=== PATIENT | male | born 1980 | race Caucasian/White ===

== ENCOUNTER 2024-08-20 21:00 | Inpatient (IN) | payer SELFPAY ==
[~2024-08-20] VITALS: Ht 170.2 cm; Wt 124.7 kg
[2024-08-20 21:03] VITALS: O2SAT 98
[2024-08-20 21:58] LABS: BASOPHILS % 0.8 % (0.0-2.0); EOSINOPHILS % 4.7 % (0.0-5.0); HEMATOCRIT. 41.1 % (42.0-52.0); HEMOGLOBIN. 13.8 g/dL (14.0-18.0); LYMPHOCYTES % 38.7 % (20.0-50.0); MEAN CORPUSCULAR HEMOGLOBIN 29.2 pg (28.0-32.0); MEAN CORPUSCULAR HGB CONC 33.7 g/dL (31.0-37.0); MEAN CORPUSCULAR VOLUME 86.7 fL (80.0-94.0); MEAN PLATELET VOLUME 8.1 fl (7.4-10.4); MONOCYTES % 7.6 % (2.0-8.0); NEUTROPHILS % 48.2 % (40.0-76.0); PLATELET 291 x1000/uL (130-400); RED BLOOD CELL COUNT 4.73 mill/uL (4.7-6.1); WHITE BLOOD COUNT 8.4 x1000/uL (4.5-11.0)
[2024-08-20 22:06] LABS: CHLORIDE 102 mEq/L (98-107); PARTIAL THROMBOPLASTIN TIME 25.1 sec (23.4-31.0); POTASSIUM 4.2 mEq/L (3.5-5.1); PROTHROMBIN TIME 10.3 sec (9.6-11.0); SODIUM 137 mEq/L (136-145)
[2024-08-20] MEDS: MORPHINE SULFATE 4 MG/ML INJ (FOR IV/IM USE) IV STA (22:06)
[2024-08-20] MEDS: SODIUM CHLORIDE 0.9% 1,000 ML IV ONE (22:06)
[2024-08-20] MEDS: ONDANSETRON HCL 4MG/2ML INJ IV STA (22:06)
[2024-08-20 22:07] LABS: CALCIUM 9.2 mg/dL (8.7-10.4); CARBON DIOXIDE 27 mEq/L (21-32)
[2024-08-20 22:12] LABS: CREATININE 0.9 mg/dL (0.6-1.3); GLUCOSE 158 mg/dL (70-105)
[2024-08-20 22:13] LABS: TROPONIN I HIGH SENSITIVITY 14 ng/L (3.0-53); UREA NITROGEN BLOOD 9 mg/dL (9-23)
[2024-08-20 22:14] LABS: ALANINE AMINOTRANSFERASE 65 IU/L (10-49); ALBUMIN 4.6 g/dL (3.2-4.8); ASPARTATE AMINOTRANSFERASE 49 IU/L (<34); BILIRUBIN DIRECT 0.1 mg/dL (<=3.0)
[2024-08-20 22:15] LABS: BILIRUBIN TOTAL 0.3 mg/dL (0.1-1.0); PROTEIN TOTAL 8.1 g/dL (6.0-8.3)
[2024-08-20] MEDS: IOHEXOL-350 100 ML BOTTLE ONE (23:50)
[2024-08-21] MEDS: ASPIRIN 325MG EC TABLET PO ONE (00:06)
[2024-08-21] MEDS ORDERED: CLONIDINE 0.1MG TABLET PO PRN (00:30)
[2024-08-21] MEDS ORDERED: ACETAMINOPHEN 325MG TABLET PO PRN ×2 (00:30)
[2024-08-21] MEDS ORDERED: DEXTROSE 50% WATER 50ML SYRINGE IV PRN (00:30)
[2024-08-21] MEDS ORDERED: ONDANSETRON HCL 4MG/2ML INJ IV PRN (00:30)
[2024-08-21] MEDS ORDERED: IPRATROPIUM/ALBUTEROL 0.5-3(2.5)MG/3ML NEB HHN PRN (00:30)
[2024-08-21] MEDS: PANTOPRAZOLE SODIUM 40 MG/VIAL IV NR (01:32)
[2024-08-21 02:40] LABS: CLARITY URINE CLEAR (CLEAR); COLOR URINE YELLOW (YELLOW); GLUCOSE URINE NEGATIVE (NEGATIVE); KETONES URINE NEGATIVE (NEGATIVE); LEUKOCYTE ESTERASE URINE NEGATIVE (NEGATIVE); NITRITE URINE NEGATIVE (NEGATIVE); OCCULT BLOOD URINE NEGATIVE (NEGATIVE); PROTEIN URINE NEGATIVE (NEGATIVE); SPECIFIC GRAVITY URINE 1.041 (1.005-1.030); UROBILINOGEN URINE 0.2 E.U./dL (0.2-1.0)
[2024-08-21 02:43] LABS: *AMPHETAMINES SCREEN URINE NEGATIVE (NEGATIVE); *BARBITURATES SCREEN URINE NEGATIVE (NEGATIVE); *BENZODIAZEPINES SCREEN URINE NEGATIVE (NEGATIVE); *COCAINE SCREEN URINE NEGATIVE (NEGATIVE)
[2024-08-21 02:44] LABS: CANNABINOID URINE SCREEN NEGATIVE (NEGATIVE); ECSTASY MDMA SCREEN URINE NEGATIVE (NEGATIVE); METHADONE URINE SCREEN NEGATIVE (NEGATIVE); OPIATES URINE SCREEN PRESUMPTIVE POSITIVE (NEGATIVE); PHENCYCLIDINE URINE SCREEN NEGATIVE (NEGATIVE)
[2024-08-21 05:00] VITALS: BP 124/76; PULSE 76; RESP 20; TEMP 36.4; O2SAT 98
[2024-08-21] MEDS ORDERED: ACET-2708 MT (06:17)
[2024-08-21] MEDS: BLOOD SUGAR DIAGNOSTIC STRIP TEST SCH (06:51)
[2024-08-21 07:30] VITALS: BP 124/76; PULSE 76; RESP 16; TEMP 36.4
[2024-08-21] MEDS: INSULIN LISPRO 100 UNITS/ML SUBCUT SCH (07:34)
[2024-08-21 08:00] VITALS: BP 154/79; PULSE 75; RESP 16; TEMP 36.2; O2SAT 98
[2024-08-21] MEDS: ASPIRIN 81MG EC TABLET PO SCH (08:41)
[2024-08-21] MEDS: ENOXAPARIN 30MG/0.3ML SYR SUBCUT SCH (08:42)
[2024-08-21] MEDS: PANTOPRAZOLE SODIUM 40 MG/VIAL IV SCH (08:42)
[2024-08-21] MEDS ORDERED: TIZANIDINE HCL 2MG TABLET PO PRN (11:30)
[2024-08-21 11:31] LABS: TROPONIN I HIGH SENSITIVITY 12 ng/L (3.0-53)
[2024-08-21 12:00] VITALS: BP 120/77; PULSE 76; RESP 16; TEMP 36.5; O2SAT 98
[2024-08-21 16:00] VITALS: BP 154/84; PULSE 78; RESP 18; TEMP 36.5; O2SAT 98
[2024-08-21 16:36] LABS: TROPONIN I HIGH SENSITIVITY 12 ng/L (3.0-53)
[2024-08-21] MEDS: HYDROCODONE/ACETAMINOPHEN 5/325MG TABLET PO PRN (16:45)
[2024-08-21 20:00] VITALS: BP 137/85; PULSE 72; RESP 20; TEMP 36.2; O2SAT 97
[2024-08-22] VITALS: BP 147/75; PULSE 77; RESP 18; TEMP 36.2; O2SAT 97
[2024-08-22 04:00] VITALS: BP 138/85; PULSE 74; RESP 18; TEMP 36.7; O2SAT 96
[2024-08-22 07:52] LABS: BASOPHILS % 0.6 % (0.0-2.0); EOSINOPHILS % 3.7 % (0.0-5.0); HEMATOCRIT. 40.7 % (42.0-52.0); HEMOGLOBIN. 13.6 g/dL (14.0-18.0); LYMPHOCYTES % 32.5 % (20.0-50.0); MEAN CORPUSCULAR HEMOGLOBIN 28.7 pg (28.0-32.0); MEAN CORPUSCULAR HGB CONC 33.4 g/dL (31.0-37.0); MEAN CORPUSCULAR VOLUME 85.8 fL (80.0-94.0); MEAN PLATELET VOLUME 8.3 fl (7.4-10.4); MONOCYTES % 5.6 % (2.0-8.0); NEUTROPHILS % 57.6 % (40.0-76.0); PLATELET 266 x1000/uL (130-400); RED BLOOD CELL COUNT 4.74 mill/uL (4.7-6.1); WHITE BLOOD COUNT 6.6 x1000/uL (4.5-11.0)
[2024-08-22 08:00] VITALS: BP 131/80; PULSE 66; RESP 16; TEMP 36.6; O2SAT 97
[2024-08-22 08:22] LABS: CALCIUM 8.9 mg/dL (8.7-10.4); CARBON DIOXIDE 26 mEq/L (21-32); CHLORIDE 101 mEq/L (98-107); POTASSIUM 4.3 mEq/L (3.5-5.1); SODIUM 138 mEq/L (136-145)
[2024-08-22 08:28] LABS: CREATININE 0.8 mg/dL (0.6-1.3); GLUCOSE 123 mg/dL (70-105); TRIGLYCERIDE 192 mg/dL (0-150); UREA NITROGEN BLOOD 11 mg/dL (9-23)
[2024-08-22 08:29] LABS: CHOLESTEROL 162 mg/dL (<200); LDL CHOLESTEROL 107 mg/dL (5-100); T4 FREE 1.15 ng/dL (0.89-1.76); THYROID STIMULATING HORMONE 6.04 uIU/mL (0.55-4.78)
[2024-08-22 08:30] LABS: HDL CHOLESTEROL 45 mg/dL (>55)
[2024-08-22] MEDS: TIZANIDINE HCL 2MG TABLET PO SCH (09:51)
[2024-08-22] MEDS ORDERED: IBUP-2030 PO (11:21)
[2024-08-22] MEDS ORDERED: TIZA-191 PO (11:21)
[2024-08-22] MEDS ORDERED: METF-1149 MT (11:22)
[2024-08-22] MEDS ORDERED: ATOR10TA69 MT (11:22)
[2024-08-22] MEDS: IBUPROFEN 800MG TABLET PO PRN (11:45)
[2024-08-22 12:00] VITALS: BP 137/74; PULSE 76; RESP 18; TEMP 37; O2SAT 97
[2024-08-22 15:25] VITALS: BP 137/74; PULSE 74; TEMP 98
[2024-08-22] MEDS ORDERED: METFORMIN HCL 500MG TABLET PO SCH (17:40)
[2024-08-22] MEDS ORDERED: ATORVASTATIN CALCIUM 10MG TABLET PO SCH (21:00)
[2024-08-24 04:07] LABS: MICROALBUMIN RANDOM URINE <3.0 ug/mL (Not Estab.); MICROALBUMIN/CREATININE RATIO <4 mg/g creat (0-29)
== END 2024-08-22 15:35 | disposition home or self-care (01) | DRG 351 ==
LOC: ER 21:00 → 8WST 23:42 → EDBEDREQTM 23:46 → EDBEDREQ 23:46 → ENRESERV 08-21 04:48
PROVIDERS: ADMIT Internal Medicine; ATTEND Internal Medicine
DX: M79.89 Other specified soft tissue disorders (principal); K76.0 Fatty (change of) liver, not elsewhere classified; E11.65 Type 2 diabetes mellitus with hyperglycemia; E66.9 Obesity, unspecified; R07.89 Other chest pain; Y99.8 Other external cause status; M62.838 Other muscle spasm; M54.2 Cervicalgia; E78.5 Hyperlipidemia, unspecified; I10 Essential (primary) hypertension; Z79.82 Long term (current) use of aspirin; Z82.49 Family history of ischemic heart disease and other diseases of the circulatory system; X58.XXXA Exposure to other specified factors, initial encounter; Y93.89 Activity, other specified; Y92.89 Other specified places as the place of occurrence of the external cause; Z68.41 Body mass index [BMI] 40.0-44.9, adult
CPT/HCPCS: 36415; 70490; 71045; 71275; 74174; 80048; 80061; 80076; 80305; 81003; 82043; 82570; 82962; 83036; 83880; 84439; 84443; 84484; 85025; 85651; 93005; 97162; 97165; 99285; J1650; J2270; J2405; J2470; J7030; L0172; Q9967